=== PATIENT | female | born 1970 | race Caucasian/White ===

== ENCOUNTER → 2021-03-04 12:21 | Outpatient (CLI) | payer SELFPAY ==
[2021-03-04 12:49] LABS: Basophils # 0.1 K/mm3 (0-0.2); Basophils % 0.7 % (0.1-2.0); Eosinophils # 0.4 K/mm3 (0.0-0.4); Eosinophils % 4.9 % (0.1-12.0); Hematocrit 40.7 % (37.0-47.0); Hemoglobin 13.4 g/dL (12.2-16.2); Lymphocytes # 2.3 K/mm3 (0.7-4.5); Lymphocytes % 28.9 % (10-50); Mean Corpuscular Hemoglobin 26.6 pg (27.0-31.2); Mean Corpuscular Volume 80.6 fl (81-99); Monocytes # 0.3 K/mm3 (0.1-1.0); Monocytes % 4.1 % (1.7-9.3); Neutrophils # 4.9 K/mm3 (1.8-7.8); Neutrophils % 61.4 % (37.0-80.0); Platelet Count 302 K/mm3 (142-424); Red Blood Count 5.05 M/mm3 (4.20-5.40); Red Cell Distribution Width 13.8 % (11.5-17.5)
[2021-03-04 12:55] LABS: INR 0.95 (0.9-1.1); Prothrombin Time 10.8 seconds (10.1-12.5)
[2021-03-04 12:58] LABS: Hemoglobin A1C 5.6 % (4.0-6.0)
[2021-03-04 13:10] LABS: Microalbumin < 6.000 mg/L (0-16.7)
[2021-03-04 13:13] LABS: Alanine Aminotransferase 31 U/L (12-78); Albumin Level 3.6 g/dl (3.5-5.0); Albumin/Globulin Ratio 1.2 (1.1-1.8); Alkaline Phosphatase 84 U/L (38-126); Anion Gap 8.1 mEq/L (5-15); Aspartate Amino Transferase 32 U/L (14-36); Bilirubin,Total 0.3 mg/dl (0.2-1.3); Blood Urea Nitrogen 21 mg/dl (7-17); Calcium 9.2 mg/dl (8.4-10.2); Carbon Dioxide 27 mmol/L (22.0-30.0); Chloride 103 mmol/L (98-107); Chol/HDL Ratio 4.4 (1-3.5); Cholesterol 218 mg/dl (140-200); Estimated Glomerular Filt Rate 76 ml/min (>60); GFR (African American) 92 ML/MIN (>60); Globulin 2.9 g/dL (1.3-3.2); Glucose 89 mg/dl (74-100); HDL Cholesterol 50 mg/dl (40-60); Potassium 4.1 mmoL/L (3.5-5.1); Sodium 134 mmol/L (136-145); Total Protein,Serum 6.5 g/dl (6.3-8.2); Triglycerides 133 mg/dl (30-150); VLDL Cholesterol 27 mg/dL (0-40)
[2021-03-04 13:24] LABS: Direct LDL Cholesterol 138.96 mg/dL (100-129)
[2021-03-04 13:35] LABS: 25-OH Vitamin D, Total 19.8 ng/mL (30-100)
[2021-03-04 13:43] LABS: Thyroid Stimulating Hormone 2.22 uIU/mL (0.465-4.68)
[2021-03-05 12:33] LABS: Hep A Ab, IgM Negative (Negative); Hep A Ab, Total Negative (Negative); Hep B Core Ab, Total Negative (Negative); Hep B Surface Ab, Qual Non Reactive (.); Hepatitis B Surface Antigen Negative (Negative); Hepatitis C Antibody 0.1 s/co ratio (0.0-0.9)
== END ==
PROVIDERS: Visit Provider Nurse Practitioner Family
DX: R53.83 Other fatigue (principal); R73.09 Other abnormal glucose; R79.89 Other specified abnormal findings of blood chemistry; R10.9 Unspecified abdominal pain
CPT/HCPCS: 80053; 80061; 82043; 82306; 83036; 84436; 84443; 85025; 85610; 86704; 86706; 86708; 87086; 87340; 87380; 87522; 87902

== ENCOUNTER → 2021-03-05 09:12 | Outpatient (CLI) | payer SELFPAY ==
--- NOTE | 2021-03-05 09:31 | CT_ITS ---
PROCEDURE: CT ABDOMEN PELVIS WO CON CLINICAL INDICATION: stone protocol COMPARISON: No exams were available for comparison TECHNIQUE: Axial images obtained with sagittal and coronal reformats. All CT scans at the facility use one or more dose reduction, viz: automated exposure control, ma/kV adjustment per patient size (including targeted exams where dose is matched to indication, i.e. head), or iterative reconstruction technique. FINDINGS: LOWER THORAX: No acute finding ABDOMEN & PELVIS: There is diffuse fatty liver. There has been a prior cholecystectomy. The spleen, adrenal glands, and pancreas have an unremarkable appearance. Small hiatal hernia There is a 5 mm nonobstructing stone in the posterior aspect of the right kidney. No ureteral calculi. No hydronephrosis. No intestinal obstruction or free air. There is a small umbilical hernia containing. No evidence of appendicitis or diverticulitis. There are scattered colonic diverticula in the sigmoid colon. There is a clip in the left aspect of the rectosigmoid junction. Bilateral tubal ligation clips are present. No pelvic mass or abnormal fluid collection. No acute bony findings IMPRESSION: 1. Nonobstructing 5 mm stone in the posterior aspect of the right kidney 2. Diffuse fatty liver involvement. 3. Colonic diverticulosis. No evidence of diverticulitis 4. Other nonacute findings as detailed above Dictated by: Dre Baker MD 03/06/2021 11:49 Dre Baker MD in [place] 03/06/2021 11:49
== END ==
PROVIDERS: PCP Nurse Practitioner Family; Visit Provider Nurse Practitioner Family
DX: R10.9 Unspecified abdominal pain (principal)
CPT/HCPCS: 74176

== ENCOUNTER 2021-08-27 10:20 | Emergency (ER) | payer SELFPAY ==
[2021-08-27 10:40] VITALS: BP 151/97; PULSE 86; RESP 19; TEMP 37.1; O2SAT 98; BMI 44.2
--- NOTE | 2021-08-27 10:45 | CA_ITS ---
FINAL REPORT TECHNIQUE: Color Doppler, duplex Doppler and compression sonography of the left lower extremity deep venous systems was performed. CLINICAL HISTORY: PAIN/CRAMPING LT CALF STARTED THIS AM,HX DVT FINDINGS: There is no evidence of deep venous thrombosis from the level of the groin to the calf. The veins are patent and compressible. IMPRESSION: No evidence of deep venous thrombosis left lower extremity. Reviewed, Interpreted and Dictated by Jin Alfaro III, MD Transcribed by Ludivina Ward Authenticated and [facility]
--- NOTE | 2021-08-27 11:05 | HMH.EDUTC ---
[facility] Disposition Clinical Impression: Calf pain Qualifiers: Laterality: left Qualified Code(s): M79.662 - Pain in left lower leg Disposition: Home, Self-Care Condition on Discharge: Good Instructions: Calf Muscle Strain, DI for Calf Muscle Strain, How To Perform RICE (Rest, Ice, Compress, Elevate) Additional Instructions: *weight bearing as tolerated *RICE, Rest the extremity, Ice 15-20 minutes 3-4 times daily, Compress- wear the lloyd wrap as discussed as much as possible to help reduce swelling and pain, Elevate the extremity when at rest *Lloyd wrap is for support and help control swelling, use it except in the shower. Be sure that is not to tight but not to loose either *Elevate when resting *Ibuprofen as directed on package every 6-8 hours as needed for pain an inflammation. If need something more can take Tylenol in between doses of Ibuprofen to help Immediately follow up with your family doctor for new or worsening of symptoms, or no noticeable improvement over the next 3-5 days Referrals: Harman Bland APRN [Primary Care Provider] - As needed Time of Disposition: 11:31 Medical Decision Making - Ramone Inquiry Pt receiving controlled substance: No Ramone was queried for this patient: No Vital Signs: 08/27/21 10:40 08/27/21 11:30 Temperature 98.7 F 98.7 F Temperature Source Oral Pulse Rate 86 Pulse Rate [Right Brachial] 86 Respiratory Rate 19 19 Blood Pressure 151/97 H Blood Pressure [Right Arm] 151/97 H Blood Pressure Mean [Right Arm] 115 Blood Pressure Source [Right Arm] Automatic Cuff Blood Pressure Position [Right Arm] Sitting 02 Sat by Pulse Oximetry 98 Oxygen Delivery Method Room Air - US Data US Images: Lower Extremity ED US Reviewed: Yes: I have viewed radiologist's interpretation Preliminary Findings: Normal/NAD Findings Narrative: Discussed with Vascular no DVT IMPRESSION: No evidence of deep venous thrombosis left lower extremity. [facility] HPI - General Stated complaint: lt leg pain Time Seen by Provider: 08/27/21 11:06 Mode of Arrival: Ambulatory Source of Information: Patient Limitations: No Limitations Description of Symptoms (Recalled from Triage Doc. by RN): PATIENT STATES SHE FELT SOMETHING SNAP IN HER LEFT LEG TWICE LAST NIGHT, AND NOW HER CALF IS SWOLLEN AND TIGHT. REPORTS HISTORY OF BLOOD CLOTS HEENT Symptoms (Recalled from RN notes): No Resp Symptoms (Recalled from RN notes): No Skin Symptoms (Recalled from RN notes): No MS Symptoms (Recalled from RN notes): Yes Functional Status (Recalled from RN notes): WNL - History of Present Illness Provider Complaint: Patient states that she was laying in her bed and when she moved her left lower leg felt a snap then her calf muscle felt like it was tight and having spasms State that this morning she was still feeling like her calf area felt tight and wanted to get checked to make sure she didnt have a blood clot because she had one years ago - Related Data Previous Rx's Medication Instructions Recorded cephalexin 500 mg capsule 500 mg PO Q12H 10 Days #20 cap 03/04/21 hydrocodone 5 mg-acetaminophen 325 1 tab PO BID PRN #4 tab 03/04/21 mg tablet peg 3350-electrolytes 236 240 ml PO Q10M #4000 ml 04/01/21 gram-22.74 gram-6.74 gram-5.86 gram solution Allergies Allergy/AdvReac Type Severity Reaction Status Date / Time No Known Allergies Allergy Verified 03/04/21 13:45 - Worker's Comp Is this a Worker's Comp case?: No [facility] History - Hepatitis A Screen Attestation statement:: This patient has been screened for Hepatitis A risk factors. I have reviewed the patient's past medical history: Yes Medical History: Reports:: Depression, Migraine Other Surgeries: Yes: Cholecystectomy, Amputation: No Fractures: No - Social History Smoking Status: Never smoker Alcohol Intake: never Occupational Status: other - Psychiatric History Pschychiatric History:: Reports:: Depression ROS Obtained: Audie
[2021-08-27 11:30] VITALS: BP 151/97; PULSE 86; RESP 19; TEMP 37.1; O2SAT 98
== END 2021-08-27 11:34 | disposition home or self-care (01) ==
PROVIDERS: Emergency Provider Nurse Practitioner; PCP Nurse Practitioner Family
DX: M79.662 Pain in left lower leg (principal)
CPT/HCPCS: 93971; 99213; G0463